=== PATIENT | female | born 1980 ===

== ENCOUNTER 2017-07-23 16:33 | Emergency (ER) | payer BC ==
[2017-07-23 17:20] VITALS: BP 131/90
--- NOTE | 2017-07-23 17:43 | ED ---
Upper Extremity Pain - HPI Summary HPI Summary: 36 year old female presents with left hand injury yesterday. She states she closed her garage door on her hand. She states she cannot pull it out she had to opened to get her hand out. She denies any numbness or tingling. She is right-handed. She has taking ibuprofen for pain. Her middle finger is swollen at the distal phalanx. She denies any wrist pain. She denies any other injury. She denies any previous injury to this area. - History of Current Complaint Hx Last Menstrual Period: 06/24/17 <Ivanna Lazo - Last Filed: 07/23/17 18:04> <Stas Martins - Last Filed: 07/23/17 19:36> - History of Current Complaint Chief Complaint: UCUpperExtremity Stated Complaint: FINGER INJURY Time Seen by Provider: 07/23/17 17:19 - Allergies/Home Medications Allergies/Adverse Reactions: Allergies Allergy/AdvReac Type Severity Reaction Status Date / Time No Known Allergies Allergy Verified 07/23/17 17:20 Home Medications: Home Medications Acetaminophen [Tylenol] 325 mg PO 07/23/17 [History] Ibuprofen 400 mg PO 07/23/17 [History] PMH/Surg Hx/FS Hx/Imm Hx Endocrine/Hematology History: Denies: Hx Diabetes Cardiovascular History: Denies: Hx Hypertension - Surgical History Surgery Procedure, Year, and Place: gall bladder 2010 Infectious Disease History: No Infectious Disease History: Denies: Traveled Outside the [place] in Last 30 Days - Family History Known Family History: Positive: Hypertension - Social History Alcohol Use: Weekly Substance Use Type: Reports: None Smoking Status (MU): Never Smoked Tobacco <Ivanna Lazo - Last Filed: 07/23/17 18:04> Review of Systems Negative: Fever Negative: Chest Pain Negative: Shortness Of Breath Positive: Myalgia - left hand pain All Other Systems Reviewed And Are Negative: Yes <Ivanna Lazo - Last Filed: 07/23/17 18:04> Physical Exam Triage Information Reviewed: Yes Vital Signs On Initial Exam: Initial Vitals Temp Pulse Resp BP Pulse Ox 98.9 F 77 16 131/90 99 07/23/17 17:13 07/23/17 17:13 07/23/17 17:13 07/23/17 17:13 07/23/17 17:13 Vital Signs Reviewed: Yes Appearance: Positive: Well-Appearing Skin: Positive: Warm, Dry, Other - subungual hematoma 3rd left finger Head/Face: Positive: Normal Head/Face Inspection Eyes: Positive: Normal, Conjunctiva Clear ENT: Positive: Pharynx normal Respiratory/Lung Sounds: Positive: Clear to Auscultation, Breath Sounds Present Cardiovascular: Positive: Normal, RRR Musculoskeletal: Positive: Edema Left - distal phalanx 3rd finger, Other - good pulses, capillary refill<2 secs, tenderness distal phlanax 3-4th finger Neurological: Positive: Normal Psychiatric: Positive: Normal <Ivanna Lazo - Last Filed: 07/23/17 18:04> Vital Signs On Initial Exam: Initial Vitals Temp Pulse Resp BP Pulse Ox 98.9 F 77 16 131/90 99 07/23/17 17:13 07/23/17 17:13 07/23/17 17:13 07/23/17 17:13 07/23/17 17:13 <Stas Martins - Last Filed: 07/23/17 19:36> Diagnostics - Vital Signs Vital Signs Temp Pulse Resp BP Pulse Ox 07/23/17 17:13 98.9 F 77 16 131/90 99 - Radiology hand Xray Interpretation: No Acute Changes Radiology Interpretation Completed By: Radiologist <Ivanna Lazo - Last Filed: 07/23/17 18:04> - Vital Signs Vital Signs Temp Pulse Resp BP Pulse Ox 07/23/17 17:13 98.9 F 77 16 131/90 99 <Stas Martins - Last Filed: 07/23/17 19:36> Course/Dx - Course Course Of Treatment: 36 year old female presents with left hand injury yesterday. She states she closed her garage door on her hand. She states she cannot pull it out she had to opened to get her hand out. She denies any numbness or tingling. She is right-handed. She has taking ibuprofen for pain. Her middle finger is swollen at the distal phalanx. She denies any wrist pain. She denies any other injury. She denies any previous injury to this area. On exam has edema and ecchymosis to right little single. Neurovascular intact. X-ray normal. Has subungual hematoma the patient refused the drain. will have treat with RICE. will have establish care with primary as blood pressure is in pre-htn range at this visit. patient understand and agrees with plan. - Diagnoses Differential Diagnosis/HQI/PQRI: Positive: Fracture (Closed), Strain, Sprain <Ivanna Lazo - Last Filed: 07/23/17 18:04> <Stas Martins - Last Filed: 07/23/17 19:36> - Diagnoses Provider Diagnoses: Contusion of left hand Discharge - Sign-Out/Discharge Documenting (check all that apply): Discharge/Admit/Transfer - Billing Disposition and Condition Condition: GOOD Disposition: Home <Ivanna Lazo - Last Filed: 07/23/17 18:04> - Billing Disposition and Condition Condition: GOOD Disposition: Home <Stas Martins - Last Filed: 07/23/17 19:36> - Discharge Plan Condition: Good Disposition: HOME Patient Education Materials: Contusion in Adults (ED) Referrals: [facility] [place] [facility] [Outside] Additional Instructions: Take Tylenol or ibuprofen every 6 hours as needed for pain Apply ice, rest, elevate Follow up with primary care physician within 5 days Return to ED if develop any new or worsening symptoms Per institutional requirements, I have reviewed the chart, however, I was not consulted specifically or made aware of this patient by the above midlevel provider. I did not personally evaluate, interact with , or disposition this patient.
--- NOTE | 2017-07-23 18:00 | RAD ---
INDICATION: Left hand injury. TECHNIQUE: 4 views of the left hand were obtained. FINDINGS: The bones are in normal alignment. No fracture is seen. Joint spaces appear maintained. IMPRESSION: NO EVIDENCE FOR FRACTURE, IF THE PATIENT'S SYMPTOMS PERSIST RECOMMEND FOLLOW-UP IMAGING
== END 2017-07-23 18:25 | disposition home or self-care (01) ==
LOC: UCEAST 16:33
DX: S60.222A Contusion of left hand, initial encounter (principal); W23.1XXA Caught, crushed, jammed, or pinched between stationary objects, initial encounter; Y92.9 Unspecified place or not applicable
CPT/HCPCS: 99211; G0463